=== PATIENT | female | born 1990 | race Caucasian/White ===

== ENCOUNTER → 2016-12-09 | Outpatient (CLI) | payer OTHER ==
[~2016-12-09] MED LIST: CATHETER FLUSH 10 ML SYR IV PRN; IOHEXOL 350 MG/ML 100 ML (OMNIPAQUE 350) VIAL IV ONE; NS 100 ML (IVPB) BAG IV ONE
[2016-12-09 12:38] LABS: MEAN PLATELET VOLUME 9.6 FL (7.4-10.4); RED BLOOD COUNT 5.06 10^6/uL (4.35-5.85); RED CELL DISTRIBUTION WIDTH 15.3 % (10.0-14.5)
--- NOTE | 2016-12-09 12:55 | Diagnostic Imaging Report ---
PROCEDURE: CT abdomen and pelvis with contrast. TECHNIQUE: Multiple contiguous axial images were obtained through the abdomen and pelvis after administration of intravenous contrast. INDICATION: Right lower quadrant abdominal pain for one week. There is low-density throughout the liver suggesting steatosis. Incidental note is made of common hepatic artery origin from the aorta. No gallbladder or pancreatic inflammation is seen. There is no evidence of splenic or adrenal gland abnormality. There is an approximately 1 cm cyst in the midportion of the left kidney. Kidneys otherwise appear to be unremarkable without hydronephrosis or calculus. No free fluid is seen in the abdomen and there is no evidence of pathologic abdominal adenopathy. Within the pelvis, there is abnormal enhancement in the uterus on dynamic phase images with significant reduction in the enhancement in the fundus. There is also mild surrounding edema and inflammation which extends into the adnexal regions with a small amount of pelvic free fluid. Finally, there is mild mural thickening within the sigmoid colon adjacent to the uterus as well. Partially opacified urinary bladder is unremarkable in appearance. IMPRESSION: Delayed enhancement and associated inflammation involving the uterine fundus may be related to metritis for possible pelvic inflammatory disease. There is a small amount of pelvic free fluid and mild mural thickening in the adjacent sigmoid colon. This may reflect either primary or secondary colitis. Clinical correlation would be of use. Dictated by: Dictated on workstation # [id number]
[2016-12-09 12:56] LABS: ALANINE AMINOTRANSFERASE 16 U/L (0-55); ALBUMIN 3.8 GM/DL (3.2-4.5); ANION GAP 7 MMOL/L (5-14); ASPARTATE AMINO TRANSFERASE 14 U/L (5-34); BILIRUBIN,TOTAL 0.5 MG/DL (0.1-1.0); BLOOD UREA NITROGEN 7 MG/DL (7-18); BUN/CREATININE RATIO 9; CALCIUM 8.7 MG/DL (8.5-10.1); CARBON DIOXIDE 25 MMOL/L (21-32); CHLORIDE 105 MMOL/L (98-107); CREATININE SERUM 0.76 MG/DL (0.60-1.30); GFR ESTIMATED > 60; GLUCOSE 90 MG/DL (70-105); POTASSIUM 4.1 MMOL/L (3.6-5.0); SODIUM 137 MMOL/L (135-145); TOTAL PROTEIN 6.7 GM/DL (6.4-8.2)
== END ==
LOC: RAD 11:59
PROVIDERS: ATTEND Nurse Practitioner Family
DX: R93.5 Abnormal findings on diagnostic imaging of other abdominal regions, including retroperitoneum (principal)
CPT/HCPCS: 36415; 74177; 80053; 85027

== ENCOUNTER 2017-03-25 02:43 | Emergency (ER) | payer OTHER ==
[~2017-03-25] VITALS: Ht 165.1 cm; Wt 87.5 kg
--- OUTSIDE RECORDS SUMMARY | 2017-03-25 02:50 | XMS REPORT | Continuity of Care Document ---
Author Author [facility] Organization [facility] Address Unknown Phone Unavailable Allergies Active Description Code Type Severity Reaction Onset Reported/Identified Relationship to Patient Clinical Status Yes promethazine [id number] Drug Allergy Unknown N/A 09/07/2014 Medications Problems Procedures Results Encounters ACCT No. Visit Date/Time Discharge Status Pt. Type Provider Facility Loc./Unit Complaint [id number] 09/07/2014 21:42:00 2014 00:11:00 DIS Emergency Darnell DUMONT, Jf Parekh [facility] ER
[2017-03-25 03:06] LABS: BILIRUBIN,URINE NEGATIVE (NEGATIVE); KETONES,URINE NEGATIVE (NEGATIVE); LEUKOCYTE ESTERASE ,URINE 3+ (NEGATIVE); NITRITE,URINE NEGATIVE (NEGATIVE); PH,URINE 6.5 (5-9); PROTEIN,URINE 3+ (NEGATIVE); UROBILINOGEN,URINE NORMAL (NORMAL)
[2017-03-25 03:16] LABS: WBC,URINE 25-50 /HPF
--- NOTE | 2017-03-25 03:35 | ED GU-Female ---
General Chief Complaint: -Female Stated Complaint: VAG BLEEDING,CRAMPING Nursing Triage Note: vag bleeding Nursing Sepsis Screen: No Definite Risk Source: patient Exam Limitations: no limitations History of Present Illness Time seen by provider: 02:49 Initial Comments This 26-year-old young lady presents to the emergency room with complaints of lower abdominal pain and cramping associated with vaginal bleeding. She reports having 6 total positive tests from March 19-. Cramping started around 18:00 last night. She then woke with intense cramping generalized in the abdomen early this morning. She has had some nausea and vomiting over the past few days. She is also experiencing some constipation. Bedside test on assessment was negative. Allergies and Home Medications Allergies Coded Allergies: promethazine (Verified Allergy, Unknown, 03/25/17) Home Medications Cephalexin 500 Mg Capsule, 500 MG PO QID, #28 Prescribed by: CLAYTON ONTIVEROS on 03/25/17 0434 Constitutional: no symptoms reported EENTM: no symptoms reported Respiratory: no symptoms reported Cardiovascular: no symptoms reported Gastrointestinal: see HPI Genitourinary: no symptoms reported : Yes LMP: Feb 21, 2017 Musculoskeletal: no symptoms reported Skin: no symptoms reported Psychiatric/Neurological: No Symptoms Reported Endocrine: No Symptoms Reported Hematologic/Lymphatic: No Symptoms Reported Past [place]-Sbrrms Hx Patient Social History Alcohol Use: Denies Use Recreational Drug Use: No Smoking Status: Never a Smoker 2nd Hand Smoke Exposure: No Recent Foreign Travel: No Contact w/Someone Who Travel: No Recent Infectious Disease Expo: No Recent Hopitalizations: No Immunizations Up To Date Tetanus Booster (TDap): Unknown Seasonal Allergies Seasonal Allergies: No Surgeries History of Surgeries: No Respiratory History of Respiratory Disorde: No Cardiovascular History of Cardiac Disorders: No Neurological History of Neurological Disord: No Reproductive System : Yes Last Menstrual Period: Feb 21, 2017 Hx : 0 Hx Para: 1 Genitourinary History of Genitourinary Disor: No Gastrointestinal History of Gastrointestinal Di: No Musculoskeletal History of Musculoskeletal Dis: No Endocrine History of Endocrine Disorders: No HEENT History of HEENT Disorders: No Cancer History of Cancer: No Psychosocial History of Psychiatric Problem: No Integumentary History of Skin or Integumenta: No Blood Transfusions History of Blood Disorders: No Physical Exam Vital Signs Vital Sign - Last 12Hours 03/25/17 02:55 Temp 97.1 Pulse 80 Resp 18 B/P (MAP) 143/97 Pulse Ox 98 O2 Delivery Room Air Capillary Refill : Less Than 3 Seconds General Appearance: WD/WN, no apparent distress HEENT: PERRL/EOMI, normal ENT inspection, pharynx normal Cardiovascular: regular rate, rhythm, no edema, no murmur Respiratory: lungs clear, normal breath sounds, no respiratory distress Gastrointestinal: normal bowel sounds, soft, tenderness (generalized the most intense over the suprapubic area and right lower quadrant) Extremities: normal inspection, no pedal edema 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, no motor/sensory deficits, alert, normal mood/affect, oriented x 3 Skin: normal color, warm/dry Progress/Results/Core Measures Results/Orders Lab Results Laboratory Tests Test 03/25/17 03:00 03/25/17 03:40 Range/Units Urine Color RED H Urine Clarity BLOODY H Urine pH 6.5 5-9 Urine Specific [place] 1.020 1.016-1.022 Urine Protein 3+ H NEGATIVE Urine Glucose (UA) NEGATIVE NEGATIVE Urine Ketones NEGATIVE NEGATIVE Urine Nitrite NEGATIVE NEGATIVE Urine Bilirubin NEGATIVE NEGATIVE Urine Urobilinogen NORMAL NORMAL MG/DL Urine Leukocyte Esterase 3+ H NEGATIVE Urine RBC (Auto) 5+ H NEGATIVE Urine RBC TNTC H /HPF Urine WBC 25-50 H /HPF Urine Squamous Epithelial Cells 5-10 /HPF Urine Crystals NONE /LPF Urine Bacteria MODERATE H /HPF Urine Casts NONE /LPF Urine Mucus NEGATIVE /LPF Urine Culture Indicated YES White Blood Count 7.6 4.3-11.0 10^3/uL Red Blood Count 4.96 4.35-5.85 10^6/uL Hemoglobin 14.0 11.5-16.0 G/DL Hematocrit 41 35-52 % Mean Corpuscular Volume 84 80-99 FL Mean Corpuscular Hemoglobin 28 25-34 PG Mean Corpuscular Hemoglobin Concent 34 32-36 G/DL Red Cell Distribution Width 12.4 10.0-14.5 % Platelet Count 302 130-400 10^3/uL Mean Platelet Volume 10.2 7.4-10.4 FL Neutrophils (%) (Auto) 54 42-75 % Lymphocytes (%) (Auto) 35 12-44 % Monocytes (%) (Auto) 10 0-12 % Eosinophils (%) (Auto) 2 0-10 % Basophils (%) (Auto) 0 0-10 % Neutrophils # (Auto) 4.1 1.8-7.8 X 10^3 Lymphocytes # (Auto) 2.6 1.0-4.0 X 10^3 Monocytes # (Auto) 0.7 0.0-1.0 X 10^3 Eosinophils # (Auto) 0.1 0.0-0.3 10^3/uL Basophils # (Auto) 0.0 0.0-0.1 10^3/uL Human Chorionic Gonadotropin, Quant < 5 <5 MIU/ML My Orders Orders - CLAYTON EDMOND MD Ua Culture If Indicated (03/25/17 02:49) Urine Bedside (03/25/17 02:49) Urine Culture (03/25/17 03:00) Hcg,Quantitative (03/25/17 03:18) Cbc With Automated Diff (03/25/17 03:19) Abo Rh Type (03/25/17 03:19) Cephalexin Capsule (Keflex Capsule) (03/25/17 04:45) Medications Given in ED Current Medications Medications Dose Ordered Sig/Francis Route Start Time Stop Time Status Last Admin Dose Admin Cephalexin HCl 500 mg ONCE ONCE PO 03/25/17 04:45 03/25/17 04:45 DC 03/25/17 04:38 500 MG Vital Signs/I&O Vital Sign - Last 12Hours 03/25/17 03/25/17 02:55 04:41 Temp 97.1 97.2 Pulse 80 76 Resp 18 18 B/P (MAP) 143/97 Pulse Ox 98 99 O2 Delivery Room Air Room Air Blood Pressure Mean: 112 Point of Care Testing Urine -Bedside: Negative Progress Note #1: Time: 03:35 Progress Note Bedside test was negative. Since patient asserts she had multiple positive test at home, it is important to determine whether patient is truly in the context of her abdominal pain. Serum hCG Quant is pending. Progress Note #2: Progress Note Serum hCG was negative. UA was suggestive of urinary tract infection. Patient was given a dose of Keflex in the ER followed by prescription. Departure Impression Impression: Primary Impression: Dysmenorrhea Additional Impressions: Urinary tract infection Qualified Codes: N39.0 - Urinary tract infection, site not specified possible miscarriage Disposition: HOME, SELF-CARE Condition: Stable Departure-Patient Inst. Decision time for Depature: 04:31 Referrals: BOB MOREJON MD (PCP/Family) Primary Care Physician Patient Instructions: Miscarriage, Urinary Tract Infection, Adult (DC) Add. Discharge Instructions: Drink plenty of clear liquids. Complete your antibiotic as prescribed. Follow- up with your primary care provider or intermodal dispatcher in the next week or two. You may take ibuprofen up to 600 mg every 6 hours and/or Tylenol (acetaminophen ) up to 1000 mg every 6 hours as needed for pain. Return to care if symptoms worsen. All discharge instructions reviewed with patient and/or family. Voiced understanding. Scripts Cephalexin (Keflex) 500 Mg Capsule 500 MG PO QID, #28 CAP Prov: CLAYTON EDMOND MD 03/25/17 CLAYTON EDMOND MD Mar 25, 2017 03:35
[2017-03-25 03:50] LABS: BASOPHILS % (AUTO) 0 % (0-10); EOSINOPHILS # (AUTO) 0.1 10^3/uL (0.0-0.3); EOSINOPHILS % (AUTO) 2 % (0-10); LYMPHOCYTES # (AUTO) 2.6 X 10^3 (1.0-4.0); LYMPHOCYTES % (AUTO) 35 % (12-44); MEAN CORPUSCULAR HEMOGLOBIN 28 PG (25-34); MEAN CORPUSCULAR HGB CONC 34 G/DL (32-36); MEAN CORPUSCULAR VOLUME 84 FL (80-99); MEAN PLATELET VOLUME 10.2 FL (7.4-10.4); MONOCYTES # (AUTO) 0.7 X 10^3 (0.0-1.0); MONOCYTES % (AUTO) 10 % (0-12); NEUTROPHILS # (AUTO) 4.1 X 10^3 (1.8-7.8); NEUTROPHILS % (AUTO) 54 % (42-75); PLATELET COUNT 302 10^3/uL (130-400); RED BLOOD COUNT 4.96 10^6/uL (4.35-5.85); RED CELL DISTRIBUTION WIDTH 12.4 % (10.0-14.5); WHITE BLOOD COUNT 7.6 10^3/uL (4.3-11.0)
[2017-03-25] MEDS ORDERED: CEPH-507 PO (04:34)
[2017-03-25 04:41] VITALS: BP 132/88
[2017-03-25] MEDS ORDERED: CEPHALEXIN 250 MG (KEFLEX) CAP PO ONE (04:45)
== END 2017-03-25 04:41 | disposition home or self-care (01) ==
LOC: EDUNIT# 02:43 → ER 02:47
DX: N39.0 Urinary tract infection, site not specified (principal); N94.6 Dysmenorrhea, unspecified
CPT/HCPCS: 36415; 81000; 84702; 84703; 85025; 86900; 86901; 87088; 99283